=== PATIENT | female | born 1945 | race Caucasian/White ===

== ENCOUNTER 2019-07-04 09:36 | Emergency (ER) | payer OTHER ==
[~2019-07-04] VITALS: Ht 167.6 cm; Wt 71.7 kg
[2019-07-04] MEDS ORDERED: IBU400 MG (09:57)
[2019-07-04] MEDS ORDERED: CRESTOR20 MG (09:58)
[2019-07-04] MEDS ORDERED: GABAPENTIN100 MG (09:59)
[2019-07-04] MEDS ORDERED: TENORMIN25 MG (09:59)
== END 2019-07-04 11:43 | disposition home or self-care (01) ==
LOC: ER 09:36
DX: G57.02 Lesion of sciatic nerve, left lower limb (principal)

== ENCOUNTER 2019-07-15 09:26 | Emergency (ER) | payer OTHER ==
[~2019-07-15] VITALS: Ht 167.6 cm; Wt 72.6 kg
[~2019-07-15 09:26] MED LIST: CRESTOR20 MG; GABAPENTIN100 MG; IBU400 MG; TENORMIN25 MG
[2019-07-15] MEDS ORDERED: DIAZEPAM10 MG PO ×2 (10:07→10:16)
== END 2019-07-15 10:37 | disposition home or self-care (01) ==
LOC: ER 09:26
DX: M54.32 Sciatica, left side (principal)

== ENCOUNTER → 2019-08-12 | Outpatient (CLI) | payer OTHER ==
[~2019-08-12] MED LIST changes: +DIAZEPAM10 MG PO
== END | disposition home or self-care (01) ==
LOC: MRI 14:08
DX: M54.5 Low back pain (principal)
CPT/HCPCS: 72148